=== PATIENT | female | born 2000 | race Two or more races ===

== ENCOUNTER 2024-10-31 11:14 | Observation (INO) | payer MEDICAID, SELFPAY ==
[2024-10-31] VITALS (12 sets, daily range): BP systolic 127; BP diastolic 67; PULSE 88–102; RESP 16; TEMP 36.8; O2SAT 96–99; BMI 28.0
== END 2024-10-31 12:15 | disposition home or self-care (01) ==
PROVIDERS: Admitting Provider Specialist; Visit Provider Specialist
DX: O26.892 Other specified pregnancy related conditions, second trimester (principal); Z3A.26 26 weeks gestation of pregnancy; R10.30 Lower abdominal pain, unspecified
CPT/HCPCS: 59025; 59899

== ENCOUNTER 2025-01-04 01:30 | Observation (INO) | payer MEDICAID, SELFPAY ==
[2025-01-04] VITALS (18 sets, daily range): BP systolic 94–117; BP diastolic 52–73; PULSE 85–103; RESP 20–99; TEMP 36.8–36.9; O2SAT 97–98; BMI 30.5
== END 2025-01-04 03:10 | disposition home or self-care (01) ==
PROVIDERS: Admitting Provider Obstetrics & Gynecology; Visit Provider Obstetrics & Gynecology
DX: O36.8130 Decreased fetal movements, third trimester, not applicable or unspecified (principal); Z3A.35 35 weeks gestation of pregnancy
CPT/HCPCS: 59025; 59899

== ENCOUNTER 2025-02-04 05:51 | Observation (INO) | payer MEDICAID, SELFPAY ==
[2025-02-04] VITALS (16 sets, daily range): BP systolic 119; BP diastolic 70; PULSE 83–103; RESP 18–99; TEMP 36.8; O2SAT 90–99; BMI 31.3
[2025-02-04 06:29] LABS: ROM Kit Lot # 58102387; ROM Swab Mixed By: YOUNB; Swb Mxed in Solvent 1 min? Yes
[2025-02-04 06:38] LABS: Rupture of Fetal Membranes Negative (Negative)
== END 2025-02-04 07:30 | disposition home or self-care (01) ==
PROVIDERS: Admitting Provider Obstetrics & Gynecology; Visit Provider Obstetrics & Gynecology
DX: Z34.03 Encounter for supervision of normal first pregnancy, third trimester (principal); Z3A.40 40 weeks gestation of pregnancy
CPT/HCPCS: 59025; 59899; 84112

== ENCOUNTER 2025-02-11 11:49 | Inpatient (IN) | payer MEDICAID, SELFPAY ==
[2025-02-11] VITALS (10 sets, daily range): BP systolic 99–125; BP diastolic 50–72; PULSE 72–103; RESP 14–16; TEMP 36.6–36.9; BMI 31.8
--- NOTE | 2025-02-11 07:42 | PC.NURSE ---
pt called, informed pt of no bed available at this time for IOL, educated on kick count and labor precautions, informed pt of this RN will call back once bed becomes available, pt verbalized understanding
--- NOTE | 2025-02-11 10:35 | PC.NURSE ---
called pt, asked pt to come in for IOL, pt states will be on her way
[2025-02-11 13:01] LABS: Basophils # (Auto) 0.0 Thou/mm3 (0.0-0.2); Basophils % (Auto) 0 % (0-2.5); Eosinophils # (Auto) 0.1 Thou/mm3 (0.0-0.5); Eosinophils % (Auto) 1 % (0-10); Hematocrit 35.1 % (36.0-46.0); Hemoglobin 11.6 g/dL (12.0-16.0); Immature Granulocytes Auto 0.15 Thou/mm3 (0.00-0.00); Lymphocytes # (Auto) 2.1 Thou/mm3 (1.0-4.8); Lymphocytes % (Auto) 17 % (10-50); Mean Corpuscular HGB Conc 33.0 g/dl (31.0-37.0); Mean Corpuscular Hemoglobin 29.0 pg (25.0-35.0); Mean Corpuscular Volume 88 fL (80-100); Monocytes # (Auto) 0.9 Thou/mm3 (0.0-0.8); Monocytes % (Auto) 7 % (0-12); Neutrophils # (Auto) 9.0 Thou/mm3 (1.8-7.7); Neutrophils % (Auto) 73 % (37-80); Nucleated Red Blood Cell # 0.00 Thou/mm3 (0.00-0.00); Nucleated Red Blood Cell % 0 /100 WBC (0); Platelet Count 291 Thou/mm3 (140-440); RDW Standard Deviation 44.5 fL (36.4-46.3); Red Blood Count 4.00 Miln/mm3 (4.00-5.20); White Blood Count 12.3 Thou/mm3 (3.6-11.0)
[2025-02-11 13:52] LABS: Syphilis Nonreactive (Nonreactive)
--- NOTE | 2025-02-11 16:41 | ESHP_ITS ---
Documentation for date of: 02/11/25 OB Labor/Induct. HPI History of Present Illness Chief complaint: induction of labor for post-dates : 1 Para: 0 Term pregnancies: 0 pregnancies: 0 Living children: 0 History of Abortions: Spontaneous and Elective: 0 History of sections: No History of : No Date of last menstrual period: 05/05/24 WALI: 02/04/25 Gestational Age (weeks): 41 Gestational Age (days): 0 Gestational age based on last menstrual period: 40 Indication for induction: post dates History of present illness: Patient presents for scheduled induction of labor. Indication: post-dates. No painful ctx. No LOF. No vaginal bleeding. Normal movement. History of Present Dating criteria: LMP confirmed by 2nd trimester US Adequate Care: Yes Narrative: Good PNC with Dr. Jung's office, available records reviewed at time of admission SMA carrier, had genetic counseling with [facility], declined amnio. Negative NIPT 1hr glucola 99 Labs Maternal Blood Type: B Pos Labs: Positive: Rubella Titre, Negative: RPR, Hepatitis B, HIV, Chlamydia, Gonorrhea and Group Beta Strep and Unknown: Herpes Type 1, Herpes Type 2 and Covid-19 Narrative: 1hr glucola 99 Negative NIPT SMA carrier screen positive Review of Systems Review of Systems Narrative Review of Systems: Review of Systems Systems Reviewed: All systems reviewed, normal except as documented Constitutional Constitutional: Denies body ache(s), Denies chills, Denies fever(s) and Denies headache(s) ENT Ears, Nose, Mouth, and Throat: Denies headache(s) and Denies vertigo Cardiovascular Cardiovascular: Denies chest pain, Denies palpitations, Denies dyspnea and Denies syncope Respiratory Respiratory: Denies cough, Denies dyspnea Gastrointestinal Gastrointestinal: Denies nausea and Denies vomiting Neurologic Neurologic: Denies convulsions, Denies headache(s), Denies other visual disturbances, Denies syncope and Denies vertigo Past Medical History Family History OTHER FAMILY HX: non-contributory Surgical History SURGICAL: Negative Section Social History SOCIAL: No tobacco/ETOH/illicit drugs Past Medical History Comments PMH COMMENT: Current BMI 31.9 Meds Home Medications and Allergies Home Medications ?Medication ?Instructions ?Recorded ?Confirmed ?Type vits no.130-ferrous fum 1 tab PO QDAY 5 02/11/25 History 27 mg iron-folic acid 800 mcg tablet ( Vitamin) Allergies Allergy/AdvReac Type Severity Reaction Status Date / Time Penicillins Allergy Severe Hives Verified 02/11/25 12:36 shrimp Allergy Severe Hives Verified 02/11/25 12:36 OB Exam Physical Exam Vital signs: Temp Pulse Resp BP 98.2 F 103 H 14 118/57 L 02/11/25 12:33 02/11/25 16:37 02/11/25 12:33 02/11/25 16:37 Narrative: General: well developed, well nourished, no acute distress, conversant Cardiac: normal heart rate Lungs: breathing without distress Abdomen: soft, gravid, non-tender, no rebound or guarding Extremities: no pain with palpation of calves Detailed Labor and Delivery Exam Dilation (cm): 0 Effacement (%): 0 Cervix position: posterior station: -3 Consistency: firm Presentation: Vertex Membranes: intact Baseline heart rate: 135 monitor accelerations: 15x15 monitor decelerations: None correction variability: Moderate (11-25) Contraction frequency (min): irregular OB Results Labs 02/11/25 12:28 Labs: Short CBC 02/11/25 Range/Units 12:28 WBC 12.3 H (3.6-11.0) Thou/mm3 Hgb 11.6 L (12.0-16.0) g/dL Hct 35.1 L (36.0-46.0) % Plt Count 291 (140-440) Thou/mm3 OB Assessment & Plan Assessment and Plan (1) Encounter for induction of labor: Status: Acute Assessment and plan: Mitul is a 24yo with SIUP at 41&0wk presenting for scheduled IOL for post-dates. Irregular, non-painful contractions, SCE: closed/thick/high. EFW 7lb by [place]her[place]th. Vitals wnl, benign exam. Reassuring assessment. PMhx/ significant for: Good PNC with Dr. Jung's office, available records reviewed at time of admission SMA carrier, had genetic counseling with [facility], declined amnio. Negative NIPT 1hr glucola 99 Plan: -Admit to L&D -Establish IV, routine labs -CEFM -Clear liquid diet -Special Certificate Dictator/consent re: , iol -GBS status: negative -Will initiate IOL with cervidil -Anticipate -Safe to proceed (2) Post-dates : Status: Acute (2) Post-dates Qualifiers: Post-term type: 40-42 weeks gestation Qualified Code(s): O48.0 - Post-term
[2025-02-12] VITALS (192 sets, daily range): BP systolic 86–164; BP diastolic 46–116; PULSE 77–136; RESP 17–18; TEMP 36.7–37.1; O2SAT 89–100
--- NOTE | 2025-02-12 03:54 | PD.LDPN ---
Documentation for date of: 02/12/25 OB Labor Progress Note Pelvic Exam Dilation (cm): 3 Effacement (%): 75 station: -2 Amniotic membrane status: Intact Contractions Monitor mode: External Contraction frequency: 2-5 Contraction intensity: Mild Status status: Category l Assessment and Plan Comments: Patient doing well, starting to feel more cramping. Vitals wnl, afebrile Cat I FHRT Ctx q4-5min SCE: /-2 Plan to initiate pitocin and titrate per protocol Candidate for epidural as desired CEFM Continue to closely monitor Safe to proceed Graciela Field MD
[2025-02-12] MEDS: RINGERS LACTATED 1000 ML 1,000 ML 100 ML IV ×2 (04:54→11:30)
[2025-02-12] MEDS: OXYTOCIN in NS 30 units 30 UNIT/500 ML BAG IV (05:40)
[2025-02-12] MEDS: ONDANSETRON INJ 2 MG/ML INJ 2 ML 4 MG IVP (10:17)
--- NOTE | 2025-02-12 10:40 | PD.LDPN ---
Documentation for date of: 02/12/25 OB Labor Progress Note Pelvic Exam Dilation (cm): 9 Effacement (%): 90 station: -1 Amniotic membrane status: Ruptured Contractions Monitor mode: External Contraction frequency: 2-6 Contraction intensity: Moderate Status status: Category ll Assessment and Plan Comments: Intrapartum Note Patient comfortable with epidural, feeling small amount of intermittent vaginal/rectal pressure. AROM occurred around 0500, clear. Vitals wnl, afebrile Cat I-II FHRT SCE: 9(right rim)/90/-1 Plan to continue to closely monitor CEFM Safe to proceed Graciela Field MD
--- NOTE | 2025-02-12 13:48 | PD.LDPN ---
Documentation for date of: 02/12/25 OB Labor Progress Note Pelvic Exam Dilation (cm): 10 Effacement (%): 100 station: +2 Amniotic membrane status: Ruptured Contractions Monitor mode: External Contraction frequency: 3-5 Contraction intensity: Strong Status status: Category ll Assessment and Plan Comments: Intrapartum Note Patient feeling more rectal pressure, but otherwise comfortable with epidural Vitals wnl, afebrile Cat I-II FHRT Ctx q3-4min SCE: C/C/+2, did practice pushes with patient and she pushes very well Will continue pushing Anticipate soon CEFM Safe to proceed Graciela Field MD
[2025-02-12] MEDS: OXYTOCIN in NS 20 units 20 UNIT/1,000 ML BAG 125 UNIT IV (15:00)
[2025-02-12] MEDS: BENZO/LANO/ALOE (Dermoplast) 60 GM CAN 1 SPRAY TOP (15:02)
[2025-02-12] MEDS: IBUPROFEN TAB 400 MG TABLET 800 MG PO (15:03)
--- NOTE | 2025-02-12 15:13 | OBDSUM_ITS ---
Data ([place]) Data Hx Section: No : 1 Term: 0 : 0 Livin Abortions: Spontaneous & Theraputic: 0 Delivery Data ([place]) Labor Data Initiation of labor: Induction Induction/Augmentation Agent: Cervidil ROM date: 02/12/25 ROM time: 05:00 Amniotic membrane rupture type: Spontaneous Amniotic fluid description: Clear Delivery Data Onset of labor date: 02/12/25 Onset of labor time: 06:50 Complete dilation date: 02/12/25 Complete dilation time: 12:22 [place] delivery date: 02/12/25 delivery time: 14:46 Placenta delivery date: 02/12/25 Placenta delivery time: 14:54 Stage 1 total time: Labor - Stage 1 Duration 5 hours and 32 minutes Delivered by: Rashida GUTIERREZ Delivery nurse: Velasquez Lipscomb RN [place] nurse: Velasquez Hidalgo RN Personnel Supervisor at delivery: No Support person(s) at delivery: FOB, mother of patient Other staff at delivery: Ronnell Manley RN Delivery Method Delivery method: Normal Vaginal Delivery Presentation: Vertex Anesthesia Type Anesthesia Type: Epidural Placenta Placenta delivery description: Spontaneous cord blood collection: Cord Blood Type Episiotomy Episiotomy description: None EBL Estimated blood loss (ml): 200 Umbilical Cord cord description: 3 Vessels Additional Procedures Mitul is a 24yo [id number] s/p uncomplicated at 41&1wk after undergoing IOL for post-dates, delivering at 1446 on 02/12/2025. On presentation, SCE was thick/closed/high. She progressed with cervidil and then IV pitocin to C/C/+2 at which point she began pushing. She received an epidural. With good maternal pushing efforts, 's head delivered OA and restituted TIFFANIE. Left anterior shoulder delivered easily followed by posterior shoulder and corpus. Terminal meconium. had spontaneous cry and was vigorous. Apgars 9/9. Infant placed on maternal abdomen where nose/mouth were suctioned and infant dried/stimulated. After approximately 2 minutes, cord was clamped x2 and cut by FOB. Cord blood collected for typing. With fundal massage and cord traction, placenta delivered spontaneously and intact with 3 vessel centrally inserted cord. Bimanual massage performed and IV pitocin given per protocol with fundus then firm at u-2cm and hemostasis noted. Inspection of perineum and vagina revealed a small 2nd degree midline perineal laceration which was repaired in routine fashion with 3-0 vicryl- total reapproximation and hemostasis achieved. All counts correct x2. Mom and were doing well when I left the room. Graciela Field MD Complications Complications: none Data ([place]) [place] Data order: 1 's gender: Male Identification band number: [id number] weight (gms): 3555 g Weight (pounds): 7 lbs and 13.4 ozs [place] length: 53.34 cm 1 minute: 9 5 minutes: 9
[2025-02-12] MEDS: METHYLERGONOVINE INJ 0.2 MG/ML VIAL IM (16:56)
--- NOTE | 2025-02-12 17:04 | PC.NURSE ---
1638-Rashida GUTIERREZ notified patient has had several small clots, pt attempted to use bedpan but voided small amount and fundus is right of midline, +2 u. Orders received for straight cath. 1649-Rashida GUTIERREZ at bedside, informed pt was straight cathed, 600mL urine output. Per MD give methergine. Manual extraction of clots performed
[2025-02-12] MEDS: DOCUSATE SOD 100 MG CAPSULE PO (20:16)
[2025-02-13] VITALS: BP 113/72; PULSE 90; RESP 17; TEMP 36.9; O2SAT 95
[2025-02-13 04:00] VITALS: BP 100/60; PULSE 76; RESP 18; TEMP 36.6; O2SAT 96
[2025-02-13 07:25] VITALS: BP 96/58; PULSE 89; RESP 16; TEMP 36.8; O2SAT 97
[2025-02-13] MEDS: DOCUSATE SOD 100 MG CAPSULE PO (08:09)
[2025-02-13] MEDS: PRENATAL VITAMIN/FE FUM/FA TABLET 1 TAB PO (08:09)
[2025-02-13 08:27] LABS: Basophils # (Auto) 0.0 Thou/mm3 (0.0-0.2); Basophils % (Auto) 0 % (0-2.5); Eosinophils # (Auto) 0.2 Thou/mm3 (0.0-0.5); Eosinophils % (Auto) 1 % (0-10); Hematocrit 30.9 % (36.0-46.0); Hemoglobin 9.9 g/dL (12.0-16.0); Immature Granulocytes Auto 0.11 Thou/mm3 (0.00-0.00); Lymphocytes # (Auto) 2.5 Thou/mm3 (1.0-4.8); Lymphocytes % (Auto) 16 % (10-50); Mean Corpuscular HGB Conc 32.0 g/dl (31.0-37.0); Mean Corpuscular Hemoglobin 28.5 pg (25.0-35.0); Mean Corpuscular Volume 89 fL (80-100); Monocytes # (Auto) 1.1 Thou/mm3 (0.0-0.8); Monocytes % (Auto) 7 % (0-12); Neutrophils # (Auto) 11.5 Thou/mm3 (1.8-7.7); Neutrophils % (Auto) 75 % (37-80); Nucleated Red Blood Cell # 0.00 Thou/mm3 (0.00-0.00); Nucleated Red Blood Cell % 0 /100 WBC (0); Platelet Count 228 Thou/mm3 (140-440); RDW Standard Deviation 47.0 fL (36.4-46.3); Red Blood Count 3.47 Miln/mm3 (4.00-5.20); White Blood Count 15.4 Thou/mm3 (3.6-11.0)
--- NOTE | 2025-02-13 10:39 | PD.LDDS ---
DS: Providers Provider Date of admission: 02/11/25 11:49 Primary care physician: Physician No Primary/Family Admitting Provider: Graciela Field MD Attending Provider on Admission: Graciela Field MD Consults: 02/12/25 15:11 Referral Routine Comment: Attending Provider on DC: Graciela Field MD Discharging Provider: Graciela Field MD DS: Diagnosis Discharge Diagnosis (1) care and examination immediately after delivery: Status: Acute (2) Post-dates : Status: Acute (3) Encounter for induction of labor: Status: Acute (4) Anemia, : Status: Acute Problem List Completed Was Problem List Reviewed/Reconciled?: Yes Summary/Hosp Course Brief History: Patient presents for scheduled induction of labor. Indication: post-dates. No painful ctx. No LOF. No vaginal bleeding. Normal movement. Mitul is a 24yo [id number] s/p uncomplicated at 41&1wk after undergoing IOL for post-dates, delivering at 1446 on 02/12/25. She has had an uncomplicated course, meeting all milestones and feels ready for discharge home. She is ambulating without lightheadedness, tolerating regular diet no n/v, spontaneously voiding without issue. She has no chest pain or shortness of breath. No fevers or chills. Minimal, appropriate discomfort. Vitals normal, benign exam. Hemodynamically stable with no evidence of infection. PP Hgb 9.9 from 11.6. Peripartum Data Delivery Method: Normal Vaginal Delivery Episiotomy Description: None Status at Discharge Functional status at discharge: independent ambulation Overall status at discharge: patient is back to baseline Time Spent with Patient Time attestation: Total time spent providing and/or coordinating discharge services: Exam Vital Signs Temp Pulse Resp BP Pulse Ox O2 Del Method 98.2 F 89 16 96/58 L 97 Room Air 02/13/25 07:25 02/13/25 07:25 02/13/25 07:25 02/13/25 07:25 02/13/25 07:25 02/13/25 07:25 Narrative Exam General: well developed, well nourished, no acute distress, conversant Cardiac: normal heart rate Lungs: breathing without distress Abdomen: soft, post-gravid, non-tender, no rebound or guarding, Fundus firm at u-3cm. Extremities: no pain with palpation of calves, 1+ edema of BLE Discharge Plan Plan Patient Disposition: HOME (Self Care) Patient condition on transfer: Stable Prescriptions/Referrals Prescriptions/Med Rec: New docusate sodium 100 mg Capsule 100 mg PO BID 10 Days Qty: 20 0RF ibuprofen 600 mg tablet 600 mg PO Q6H PRN (Reason: See Comments) 10 Days Qty: 20 0RF ferrous sulfate 325 mg (65 mg iron) tablet 325 mg PO QDAY Qty: 30 0RF Continued Vitamin 27 mg iron- 800 mcg tablet 1 tab PO QDAY Referrals: No Primary/Family,Physician [Primary Care Provider] - Patient/Caregiver Discharge Instructions Discharge Activity: activity as tolerated and other Other Discharge Activity Instructions:: vaginal rest and no heavy lifting more than 10 pounds for 6 weeks Other Discharge Diet Instructions: regular diet Education Materials: After a Vaginal Print Language: Macedonian Activity Restrictions/Additional Instructions: follow up with Dr. Jung's office in 2-4 weeks, call clinic for appointment Stand Alone Forms: [employer] Award Info., Patient Portal Info Letter Discharge Order Discharge Orders: Discharge (Routine); Ordered 02/13/25 Ordered By: Graciela Field Planned Discharge Date 02/13/25 (2) Post-dates Qualifiers: Post-term type: 40-42 weeks gestation Qualified Code(s): O48.0 - Post-term
[2025-02-13 11:22] VITALS: BP 101/65; PULSE 99; RESP 17; TEMP 37; O2SAT 97
== END 2025-02-13 16:45 | disposition home or self-care (01) | DRG 560 ==
LOC: S4SX 23:33 → S4NX 02-12 17:59
PROVIDERS: Admitting Provider Obstetrics & Gynecology; Visit Provider Obstetrics & Gynecology
DX: O48.0 Post-term pregnancy (principal); Z37.0 Single live birth; Z3A.41 41 weeks gestation of pregnancy; O70.1 Second degree perineal laceration during delivery; O77.0 Labor and delivery complicated by meconium in amniotic fluid; O90.81 Anemia of the puerperium; Z14.8 Genetic carrier of other disease
CPT/HCPCS: 36415; 59409; 85025; 86780; 86850; 86900; 86901; 94762; J2210; J2405; J2590; J2795; J3010; J7120; A9270